=== PATIENT | female | born 1985 | race African-American/Black ===

== ENCOUNTER 2016-08-19 11:32 | Emergency (ER) | payer OTHER ==
[2016-08-19 11:20] LABS: URINE SOURCE CLEAN CATCH
[2016-08-19 11:23] LABS: URINE APPEARANCE CLEAR; URINE BILIRUBIN NEG (NEG); URINE BLOOD NEG (NEG); URINE COLOR YELLOW; URINE GLUCOSE NEG (NORM); URINE KETONE NEG (NEG); URINE LEUKOCYTE ESTERASE NEG (NEG); URINE NITRATE NEG (NEG); URINE PROTEIN NEG (NEG); URINE UROBILINOGEN 0.2 MG/DL (NORM)
[~2016-08-19 11:32] MED LIST: AUGMENTIN875 MG DOB; DICLOFENAC PO; DIFLUCAN PO; DOXYCYCLINE PO; FLAGYL PO; IBUPROFEN PO; MUCINEX D ER T1 EAC1 PO; NO MEDICATIONS; PRENATAL MULTIV1 TA1; REGLAN PO; RONDEC-DM ORAL30 ML PO
[2016-08-19 11:38] LABS: MICRO INDICATED? NO
[2016-08-21 17:00] LABS: CHLAMYDIA TRACH Not Detected (Not Detected); N GONOR Not Detected (Not Detected)
== END 2016-08-19 12:38 | disposition home or self-care (01) ==
LOC: SED 11:32
PROVIDERS: Nurse Practitioner
DX: N76.0 Acute vaginitis (principal); Z88.6 Allergy status to analgesic agent
CPT/HCPCS: 81003; 84703; 87210; 87491; 87591; 87651; 87808; 87905; 99284